=== PATIENT | male | born 1995 | race American Indian/Alaskan Native ===

== ENCOUNTER 2019-06-02 18:02 | Emergency (ER) | payer SELFPAY ==
--- NOTE | 2019-06-02 18:08 | Event Note ---
ED Screening Note ED Screening Note: exposure to syphilis no dc cheated on him treated bp elevated in ER pmh sz migraines rx keppra psh t/a etoh occ This initial assessment/diagnostic orders/clinical plan/treatment(s) is/are subject to change based on patients health status, clinical progression and re- assessment by fellow clinical providers in the ED. Further treatment and workup at subsequent clinical providers discretion. Patient/guardian urged not to elope from the ED as their condition may be serious if not clinically assessed and managed. Initial orders include: STD work up
[2019-06-02 19:13] LABS: Bilirubin,Urine NEG (Negative); Blood,Urine NEG (Negative); Color,Urine Yellow (Yellow); Mucus,Urine FEW /HPF
--- NOTE | 2019-06-02 20:27 | Emergency Department Report ---
ED Medical Clearance HPI - General Chief complaint: Urogenital-Male Stated complaint: STD CHECK Time Seen by Provider: 06/02/19 18:06 Source: patient Mode of arrival: Ambulatory - History of Present Illness Initial comments: Patient is a 23-year-old male presents to the emergency room with complaints of an STD check. He denies any symptoms at all. He denies any penile discharge, penile lesions, testicular pain, testicular edema. Denies any history of any STDs at all. He states he is sexually active and does not use protection. Has a past medical history of migraines and seizures. He denies any allergies to medications. Home medications: Previous Rx's Medication Instructions Recorded Last Taken Type levETIRAcetam [Keppra TAB] 500 mg PO BID #60 tablet 05/29/14 Unknown Rx Allergies/Adverse reactions: Allergies Allergy/AdvReac Type Severity Reaction Status Date / Time No Known Allergies Allergy Verified 03/31/14 02:13 ED Review of Systems ROS: Stated complaint: STD CHECK Other details as noted in HPI Comment: All other systems reviewed and negative ED Past Medical Hx - Past Medical History Previous Medical History?: Yes Hx Headaches / Migraines: Yes Hx Seizures: Yes Hx Asthma: Yes - Surgical History Past Surgical History?: Yes Additional Surgical History: TONSILLECTOMY - Social History Smoking Status: Never Smoker Substance Use Type: Alcohol - Medications Home Medications: Home Medications Medication Instructions Recorded Confirmed Last Taken Type levETIRAcetam [Keppra TAB] 500 mg PO BID #60 tablet 05/29/14 Unknown Rx ED Physical Exam - General Limitations: No Limitations General appearance: alert, in no apparent distress - Head Head exam: Present: atraumatic, normocephalic - Eye Eye exam: Present: normal appearance - ENT ENT exam: Present: mucous membranes moist - Respiratory Respiratory exam: Present: normal lung sounds bilaterally. Absent: respiratory distress, wheezes, rales, rhonchi, stridor, accessory muscle use, decreased breath sounds, prolonged expiratory - Cardiovascular Cardiovascular Exam: Present: regular rate, normal rhythm, normal heart sounds. Absent: systolic murmur, diastolic murmur, rubs, gallop - Neurological Exam Neurological exam: Present: alert, oriented X3 - Psychiatric Psychiatric exam: Present: normal affect, normal mood - Skin Skin exam: Present: warm, dry, intact ED Course Vital Signs 06/02/19 06/02/19 18:07 21:25 Temperature 98.7 F 99 F Pulse Rate 92 H 89 Respiratory 18 18 Rate Blood Pressure 179/112 Blood Pressure 137/90 [Left] O2 Sat by Pulse 97 100 Oximetry ED Medical Decision Making - Medical Decision Making Patient is a 23-year-old male presents to the emergency room with complaints of an STD check. He denies any symptoms at all. He denies any penile discharge, penile lesions, testicular pain, testicular edema. Denies any history of any STDs at all. He states he is sexually active and does not use protection. Has a past medical history of migraines and seizures. He denies any allergies to medications. UA, G/C, and RPR were all ordered by triage prior to my assessment of patient. UA is without evidence of UTI. discussed with pt to follow up with medical records in 1 week for results of G/C and RPR to see if he needs to receive tx. initially BP elevated, improved on repeat. advised pt to please be seen by a primary care doctor or the health department for further STD testing. Please follow-up with the primary care doctor due to the elevation in your blood pressure during today's visit. keep blood pressure log and eat a low- sodium diet. Return to the emergency room for any new worsening symptoms. ED Disposition Clinical Impression: Concern about STD in male without diagnosis Disposition: DC-01 TO HOME OR SELFCARE Is pt being admited?: No Does the pt Need Aspirin: No Condition: Stable Instructions: Sexually Transmitted Diseases (ED), Safe Sex (ED) Additional Instructions: Please check back with medical records in one week for results of your tests to see if you need treatment. Please be seen by a primary care doctor or the health department for further STD testing. Please follow-up with the primary care doctor due to the elevation in your blood pressure during today's visit. keep blood pressure log and eat a low-sodium diet. Return to the emergency room for any new worsening symptoms. Referrals: THO ELDRIDGE MD [Primary Care Provider] - 2-[address] [facility] [Outside] - 3-5 Days Time of Disposition: 20:26 Print Language: PERSIAN
[2019-06-02 21:32] VITALS: BP 137/90
== END 2019-06-02 21:30 | disposition home or self-care (01) ==
LOC: ED 18:02
DX: Z71.1 Person with feared health complaint in whom no diagnosis is made (principal); G43.909 Migraine, unspecified, not intractable, without status migrainosus; J45.909 Unspecified asthma, uncomplicated; Z90.89 Acquired absence of other organs
CPT/HCPCS: 36415; 81001; 86592; 86593; 86780; 87591

== ENCOUNTER 2019-06-08 10:16 | Emergency (ER) | payer SELFPAY ==
[2019-06-08] MEDS ORDERED: BICILLIN L-A IM ONE (10:56)
--- NOTE | 2019-06-08 10:56 | Emergency Department Report ---
ED Recheck HPI - General Chief Complaint: Urogenital-Male Stated Complaint: STD CHECK Time Seen by Provider: 06/08/19 10:47 Source: patient Mode of arrival: Ambulatory Limitations: No Limitations - History of Present Illness Initial Comments: Mr. Hilario is a very pleasant 23-year-old male who has history of STD exposure. This has been was affected with syphilis. Consequently Mr. Hilario came to our emergency department 6 days ago on June 02 for testing. RPR and FTAABS tests were positive reactive. Mr. Hilario paying for syphilis treatment. He does not have any symptoms. He does not have lesions discharge or fever. Complaint: other (STD exposure treatment positive reactive test for syphilis) -: week(s) (1) Initial Visit For: other (STD evaluation) Returns Today for: other (needs treatment for syphilis) Symptoms Since Prior Visit: no new symptoms Context: called for abnorm lab res Associated Symptoms: none - Related Data Previous Rx's Medication Instructions Recorded Last Taken Type levETIRAcetam [Keppra TAB] 500 mg PO BID #60 tablet 05/29/14 Unknown Rx Allergies Allergy/AdvReac Type Severity Reaction Status Date / Time No Known Allergies Allergy Verified 06/08/19 10:17 ED Review of Systems ROS: Stated complaint: STD CHECK Other details as noted in HPI Constitutional: denies: fever, malaise Gastrointestinal: denies: abdominal pain, nausea, vomiting Genitourinary: denies: urgency, dysuria, frequency, discharge Skin: denies: rash, lesions ED Past Medical Hx - Past Medical History Hx Headaches / Migraines: Yes Hx Seizures: Yes Hx Asthma: Yes - Surgical History Additional Surgical History: TONSILLECTOMY - Social History Smoking Status: Never Smoker Substance Use Type: Alcohol - Medications Home Medications: Home Medications Medication Instructions Recorded Confirmed Last Taken Type levETIRAcetam [Keppra TAB] 500 mg PO BID #60 tablet 05/29/14 Unknown Rx ED Physical Exam - General Limitations: No Limitations General appearance: alert, in no apparent distress - Head Head exam: Present: atraumatic, normocephalic - Eye Eye exam: Absent: scleral icterus - Respiratory Respiratory exam: Absent: respiratory distress - Neurological Exam Neurological exam: Present: alert, oriented X3 - Psychiatric Psychiatric exam: Present: normal affect, normal mood - Skin Skin exam: Present: warm, dry, intact, normal color ED Course Vital Signs 06/08/19 10:33 Temperature 98.9 F Pulse Rate 100 H Respiratory 16 Rate Blood Pressure 151/84 [Left] O2 Sat by Pulse 99 Oximetry ED Recheck MDM - Medical Decision Making I reviewed electronic medical record. RPR and FTAABS reactive for syphilis. Mr. Hilario received 2.4 million units IM of Bicillin L-A Discharged home with written education regarding diagnosis. Critical care attestation.: If time is entered above; I have spent that time in minutes in the direct care of this critically ill patient, excluding procedure time. ED Disposition Clinical Impression: Exposure to syphilis Disposition: DC-01 TO HOME OR SELFCARE Is pt being admited?: No Does the pt Need Aspirin: No Condition: Stable Instructions: Syphilis (ED)
[2019-06-08 11:42] VITALS: BP 150/80
== END 2019-06-08 11:41 | disposition home or self-care (01) ==
LOC: ED 10:16
DX: Z20.2 Contact with and (suspected) exposure to infections with a predominantly sexual mode of transmission (principal); J45.909 Unspecified asthma, uncomplicated; G43.909 Migraine, unspecified, not intractable, without status migrainosus; Z90.89 Acquired absence of other organs
CPT/HCPCS: 96372; 99282; J0561